=== PATIENT | female | born 1995 | race Caucasian/White ===

== ENCOUNTER 2017-04-29 10:45 | Emergency (ER) | payer MEDICAID ==
[2017-04-29] MEDS ORDERED: Ipratropium 0.5MG/2.5ML NEB* 0.5 MG/2.5 ML NEB.SOLN INH ONE (11:58)
[2017-04-29] MEDS ORDERED: Albuterol 2.5 MG/3 ML NEB.SOL* (0.083%) INH ONE (11:58)
--- NOTE | 2017-06-04 07:24 | UC ---
Pieter Patel Nikita, scribed for Danika Ortiz DO on 04/29/17 at 1207 . Respiratory Complaint HPI - HPI Summary HPI Summary: This patient is a 22 year old F presenting to [facility] with a chief complaint of upper respiratory symptoms since 2 weeks ago. For the past two weeks, pt has been having allergic reactions (mold, dog). 4 days ago, pt caught a cold, which added to respiratory symptoms. The patient rates the pain 0/10 in severity. Symptoms aggravated by nothing. Symptoms alleviated by nothing. Patient reports wheezing, SOB, sore throat (from cold), sinus NEWSOME, and sinus congestion. Patient denies ear ache, eye discharge, abdominal pain, CP, N/V, chills, and fever. Pt has been using her inhaler more than recommended. - History of Current Complaint Chief Complaint: UCRespiratory Stated Complaint: ASTHMA Time Seen by Provider: 04/29/17 11:58 Hx Obtained From: Patient Hx Last Menstrual Period: 04/13/17 Onset/Duration: Gradual Onset - allergies to mold and dogs, then pt had recent cold, Lasting Weeks - 2 weeks Timing: Constant Severity Currently: None Pain Intensity: 0 Pain Scale Used: 0-10 Numeric Aggravating Factors: Nothing Alleviating Factors: Nothing Associated Signs And Symptoms: Positive: Wheezing - Patient reports wheezing, SOB, sore throat (from cold), sinus NEWSOME, and sinus congestion. Patient denies ear ache, eye discharge, abdominal pain, CP, N/V, chills, and fever. - Allergies/Home Medications Allergies/Adverse Reactions: Allergies Allergy/AdvReac Type Severity Reaction Status Date / Time No Known Allergies Allergy Verified 04/29/17 10:48 Home Medications: Home Medications Albuterol HFA INHALER* [Ventolin HFA Inhaler*] 2 puff INH Q4H PRN 04/29/17 [ History Confirmed 04/29/17] PMH/Surg Hx/FS Hx/Imm Hx - Additional Past Medical History Additional PMH: Eczema Respiratory History: Asthma - Surgical History Surgical History: None - Family History Known Family History: Negative: Cardiac Disease, Hypertension, Diabetes - Social History Alcohol Use: Occasionally Substance Use Type: Marijuana Smoking Status (MU): Never Smoked Tobacco Review of Systems Constitutional: Other - Pt denies chills, fever Eyes: Other - denies eye discharge ENT: Sore Throat, Sinus Congestion, Other - Denies nasal discharge, ear ache Respiratory: Shortness Of Breath, Other - wheezing Cardiovascular: Other - Denies CP Gastrointestinal: Other - Denies abdominal pain, N/V Neurological: Headache - sinus All Other Systems Reviewed And Are Negative: Yes Physical Exam Triage Information Reviewed: Yes Vital Signs: Initial Vital Signs Temp 97.8 F 04/29/17 10:49 Pulse 100 04/29/17 10:49 Resp 22 04/29/17 10:49 Pulse Ox 97 04/29/17 10:49 - Additional Comments Appearance: Well-Appearing, No Pain Distress, Well-Nourished Eyes: conjunctiva clear, negative: discharge ENT: Hearing grossly normal, Negative: Muffled/hoarse voice. Pale and boggy nasal mucosa. No sinus tenderness. Allergic shiners. Neck: Normal, Supple Respiratory/Lung Sounds: Diffuse wheezing in all sandoval. Cardiovascular: RRR, No murmur Musculoskeletal: Normal Neurological: Alert, muscle tone normal Psychiatric: Normal, age appropriate behavior Skin: Normal, other -- Warm, Dry, Normal color UC Diagnostic Evaluation - Laboratory O2 Sat by Pulse Oximetry: 97 Re-Evaluation - Re-Evaluation First Eval Change: Improved Comment: Pt reports respiratory symptoms completely resolved. Respiratory Course/Dx - Course Course Of Treatment: This patient is a 22 year old F presenting to [facility] with a chief complaint of upper respiratory symptoms since 2 weeks ago. For the past two weeks, pt has been having allergic reactions (mold, dog). 4 days ago, pt caught a cold, which added to respiratory symptoms. The patient rates the pain 0 /10 in severity. Symptoms aggravated by nothing. Symptoms alleviated by nothing. Patient reports wheezing, SOB, sore throat (from cold), sinus NEWSOME, and sinus congestion. Patient denies ear ache, eye discharge, abdominal pain, CP, N/ V, chills, and fever. Pt has been using her inhaler more than recommended. In the course, pt was given a nebulizer which alleviated symptoms. Medications reviewed this visit. Pt will be discharged. Pt is agreeable with this plan. - Differential Dx/Diagnosis Provider Diagnoses: Asthma and allergies. Discharge - Discharge Plan Condition: Stable Disposition: HOME Prescriptions: Albuterol HFA INHALER* [Ventolin HFA Inhaler*] 2 puff INH Q4H PRN #1 mdi PRN Reason: Sob/Wheezing predniSONE TAB* [Deltasone TAB*] 40 mg PO DAILY #10 tab Patient Education Materials: Asthma (ED), Allergies (ED) Referrals: No Primary Care Phys,NOPCP [Primary Care Provider] - 1 Day Additional Instructions: TRY USING THE NETTI POT IN THE MORNINGS DISCUSSED. YOU MUST ALWAYS USE CLEAN WATER. REMEMBER, POSTURE IS AN IMPORTANT FACTOR IN SINUS DRAINAGE. MOVE YOUR NECK, BREATHE. CORTICOSTEROID MEDICATION: You have been given a medicine of the cortisone class. This medication is used to control inflammation or allergy. It is usually only given for a short period of time, until the acute process subsides. There are usually no side effects from short-term use of cortisone-like medications. Some persons feel an increased sense of well-being and are not sleepy at bedtime. Long-term use of cortisone medications is best avoided, unless required for a severe condition. If your condition does not remit, or relapses after the course of corticosteroid medication, you should consult your physician. Contact the physician if you develop lightheadedness, black or tarry stools , swelling of the legs, or significant rapid change in weight. INHALED BRONCHODILATORS: You have received a prescription for an inhaled bronchodilator -- a medication which stimulates the airways in the lung to dilate. This improves the flow of air in asthma, bronchitis, and emphysema. These medicines have some similarity to adrenaline, and can cause similar side effects: shakiness, racing heart, and a sense of nervousness. These side effects decrease with time. Contact your doctor if these side effects are severe. Do not over-use the medicine. Too-frequent use of the inhaler may make it ineffective. Call your doctor if the inhaler is not controlling your symptoms at the prescribed doses. The documentation as recorded by the Pieter segundo Nikita accurately reflects the service I personally performed and the decisions made by , Danika Ortiz DO.
== END 2017-04-29 12:57 | disposition home or self-care (01) ==
LOC: UCEAST 10:45
DX: J45.909 Unspecified asthma, uncomplicated (principal); R06.02 Shortness of breath; J02.9 Acute pharyngitis, unspecified; R51 Headache; R09.81 Nasal congestion; F12.90 Cannabis use, unspecified, uncomplicated
CPT/HCPCS: 99202; G0463; J7644